=== PATIENT | female | born 2000 | race Caucasian/White ===

== ENCOUNTER 2021-02-25 16:45 | Outpatient (CLI) | END 2021-02-25 16:46 | disposition home or self-care (01) | LOC: SCSRAD 16:45 | PROVIDERS: ATTEND Chiropractor | DX: M54.50 Low back pain, unspecified (principal); M54.2 Cervicalgia | CPT/HCPCS: 72040; 72100 ==

== ENCOUNTER 2021-04-07 13:43 | Outpatient (CLI) | payer OTHER | END 2021-04-07 13:44 | disposition home or self-care (01) | LOC: SCSRAD 13:43 | PROVIDERS: ATTEND Chiropractor | DX: S23.41XA Sprain of ribs, initial encounter (principal) ==